=== PATIENT | female | born 1975 | race Caucasian/White ===

== ENCOUNTER 2016-07-24 15:46 | Emergency (ER) | payer SELFPAY ==
[~2016-07-24 15:46] MED LIST: ALPR1TAB2 PO; ASPI1TAB PO; DEXT30CA6 PO; ESTR0.62 PO; HYDR-2666 PO; VENL75CA PO; ZOLP10TA PO
[2016-07-24 18:26] LABS: BASO # 0.1 x10^3/uL (0.0-0.2); BASO % 1 % (0-3); EOS % 1 % (0-3); HEMATOCRIT 43.4 % (36.0-47.0); HEMOGLOBIN 14.7 g/dL (12.0-15.5); LYMPH # 3.6 x10^3/uL (1.0-4.8); LYMPH % 27 % (24-48); MEAN CORPUSCULAR HEMOGLOBIN 31 pg (25-35); MEAN CORPUSCULAR HGB CONC 34 g/dL (31-37); MEAN CORPUSCULAR VOLUME 92 fL (79-100); MONO % 5 % (0-9); NEUT % 66 % (31-73); PLATELET COUNT 251 x10^3/uL (140-400); RED BLOOD COUNT 4.72 x10^6/uL (3.50-5.40); RED CELL DISTRIBUTION WIDTH 13.9 % (11.5-14.5); WHITE BLOOD COUNT 13.4 x10^3/uL (4.0-11.0)
[2016-07-24] MEDS ORDERED: ONDANSETRON PF 4 MG/2 ML VIAL. IV ONE (18:30)
[2016-07-24] MEDS ORDERED: KETOROLAC 15 MG/ML VIAL. IV ONE (18:30)
[2016-07-24] MEDS ORDERED: IV NORMAL SALINE 1000ML BAG 1,000 ML IV SCH (18:30)
[2016-07-24 18:33] LABS: BILIRUBIN,URINE NEGATIVE (NEG); GLUCOSE,URINE NEGATIVE (NEG); NITRITE,URINE NEGATIVE (NEG); PROTEIN,URINE NEGATIVE (NEG-TRACE); UROBILINOGEN,URINE 0.2 mg/dL (0.2 mg/dL)
[2016-07-24 18:39] LABS: BACTERIA,URINE 0 /HPF (0-FEW); RBC,URINE 0 /HPF (0-2); SQUAMOUS EPITHELIAL CELL,UR OCC /LPF; WBC,URINE OCC /HPF (0-4)
[2016-07-24 18:44] LABS: CALCIUM 9.2 mg/dL (8.5-10.1); CREATININE 0.6 mg/dL (0.6-1.0); GFR 110.2; POTASSIUM 3.5 mmol/L (3.5-5.1)
[2016-07-24] MEDS: fentaNYL PF VIAL 100 MCG/2 ML VIAL IV PRN ×2 (18:48→19:38)
[2016-07-24 18:50] LABS: ALBUMIN 3.9 g/dL (3.4-5.0); TOTAL BILIRUBIN 0.5 mg/dL (0.2-1.0); TOTAL PROTEIN 7.8 g/dL (6.4-8.2)
--- NOTE | 2016-07-24 20:50 | RAD ---
PROCEDURE CT abdomen pelvis without contrast. HISTORY Bilateral flank pain for 1 week, history of kidney stones of frequent urinary tract infections TECHNIQUE Noncontrast CT imaging was performed of the abdomen and pelvis, multiplanar reconstruction images submitted. Exposure: One or more of the following individualized dose reduction techniques were utilized for this exam: 1. Automated exposure control. 2. Adjustment of the mA and/or kV according to patient size. 3. Use of iterative reconstruction technique. COMPARISON January 03, 2016 FINDINGS There is no significant abnormality of the limited visualized lung bases. Accurate evaluation of the abdominal visceral organs is limited without intravenous contrast. There is no obvious focal abnormality of the liver, spleen, pancreas. Gallbladder is present without obvious intraluminal abnormality by CT. There is no adrenal nodularity. No convincing ureteral calculus is identified, phleboliths in the pelvis bilaterally. There is no hydronephrosis of either kidney. There are several, at least 14 scattered right renal calculi, largest 2 to 3 millimeters. There is no left renal calculus. Accurate evaluation of bowel is limited without oral contrast. There is no significant bowel dilatation, free air, free fluid. There is some gas in the vaginal vault. Normal appendix is visualized. There is some retained stool in segments of the colon. Small bowel is not significantly dilated. There is moderate to severe degenerative disc disease L5-S1. There is disc osteophyte complex eccentric into the inferior right L5-S1 neural foramen with mild narrowing. IMPRESSION 1. There are multiple right renal calculi, no hydronephrosis. No convincing ureteral calculus is identified. 2. There is retained stool in segments of the colon. 3. There is degenerative disc disease L5-S1. Electronically signed by: Boris Eagle MD (July 24, 2016 20:48:24)
[2016-07-24 21:32] VITALS: BP 134/89
[2016-07-24] MEDS ORDERED: NAPR250T2 PO (21:41)
[2016-07-24] MEDS ORDERED: CYCL10TA2 PO (21:41)
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
== END 2016-07-24 21:55 | disposition home or self-care (01) ==
LOC: ER 15:46
DX: R10.9 Unspecified abdominal pain (principal); R11.0 Nausea; F90.9 Attention-deficit hyperactivity disorder, unspecified type; F17.200 Nicotine dependence, unspecified, uncomplicated; M51.37 Other intervertebral disc degeneration, lumbosacral region; Z87.442 Personal history of urinary calculi; Z87.440 Personal history of urinary (tract) infections; Z90.710 Acquired absence of both cervix and uterus
CPT/HCPCS: 36415; 74176; 80053; 81001; 83690; 85027; 96361; 96374; 96375; 96376; 99285; J1885; J2405; J3010; J7030

== ENCOUNTER 2016-08-29 12:23 | Emergency (ER) | payer OTHER ==
[~2016-08-29] VITALS: Ht 170.2 cm; Wt 77.1 kg
[~2016-08-29 12:23] MED LIST changes: +CYCL10TA2 PO; -HYDR-2666 PO; +HYDR-2758 PO; +NAPR250T2 PO
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
[2016-08-29] MEDS ORDERED: LORazepam 1 MG TABLET PO ONE (13:15)
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
[2016-08-29] MEDS ORDERED: LIDO:MAALOX:DONNATAL 1:1:1 15 ML SINGLE DOSE SWSW ONE (14:30)
[2016-08-29] MEDS ORDERED: CYCL10TA2 PO (14:46)
[2016-08-29 15:00] VITALS: BP 133/89
== END 2016-08-29 15:05 | disposition home or self-care (01) ==
LOC: ER 12:23
DX: S16.1XXA Strain of muscle, fascia and tendon at neck level, initial encounter (principal); M54.6 Pain in thoracic spine; F90.9 Attention-deficit hyperactivity disorder, unspecified type; Z90.710 Acquired absence of both cervix and uterus; V46.4XXA Person boarding or alighting a car injured in collision with other nonmotor vehicle, initial encounter; Y93.89 Activity, other specified; Y92.488 Other paved roadways as the place of occurrence of the external cause; Y99.8 Other external cause status
CPT/HCPCS: 70450; 72072; 72100; 72125; 99284-25

== ENCOUNTER 2017-11-06 21:33 | Inpatient (IN) | payer OTHER ==
[~2017-11-06] VITALS: Ht 170.2 cm; Wt 78.7 kg
[~2017-11-06 21:33] MED LIST changes: -NAPR250T2 PO; +NAPR250T6 PO
[2017-11-06] MEDS ORDERED: ONDANSETRON PF 4 MG/2 ML VIAL. IV PRN (22:30)
[2017-11-06] MEDS: IV NORMAL SALINE 1000ML BAG 1,000 ML IV SCH (22:30)
[2017-11-06] MEDS ORDERED: DIPHTH,PERTUSS(ACELL),TET TOX 0.5 ML DISP.SYRIN. VAX IM ONE (22:30)
--- NOTE | 2017-11-06 22:42 | PHYS DOC ---
Past Medical History Past Medical History: Anxiety, Depression, Endometriosis Additional Past Medical Histor: ADHD, CHRONIC NECK PAIN Past Surgical History: Hysterectomy Additional Past Surgical Histo: Pt. has had blood transfusion 2008 Alcohol Use: Occasionally Drug Use: Benzodiazepine Adult General Chief Complaint Chief Complaint: SUICDAL IDEATION HPI HPI Patient is a 42 year old female who presents after taking an overdose of Xanax. Patient has a known history of depression and anxiety. She does take antidepressant medications daily. She also takes 1 mg of Xanax 3 times daily. She has been on this medication for several years. This evening, the patient is having increased stress. She is upset because she is tired of feeling depressed despite taking medications. She also relates that she recently suffered the loss of her father. This evening, the patient took 90 Xanax. These were 1 mg tablets. She took the medicine at 8:45 PM. She also used a serrated edged knife to inflict superficial lacerations over the volar surfaces of her distal forearm. She denies previous history of suicide attempts. And route to the hospital, the patient was given activated charcoal her EMS. Review of Systems Review of Systems Constitutional: Denies fever Eyes: Denies change in visual acuity HENT: Denies nasal congestion Respiratory: Denies cough Cardiovascular: No additional GI: Denies abdominal pain, nausea : Denies dysuria Musculoskeletal: Denies back pain Integument: Denies rash Neurologic: Denies headache Endocrine: Denies polyuria All other systems were reviewed and found to be within normal limits, except as documented in this note. Current Medications Current Medications Current Medications Medications (Trade) Dose Ordered Sig/Robi Start Time Stop Time Status Last Admin Dose Admin Diphtheria/ Tetanus/Acell Pertussis (Boostrix) 0.5 ml ONCE ONCE 11/06/17 22:30 11/06/17 22:31 DC Ondansetron HCl (Zofran) 4 mg PRN Q8HRS PRN 11/06/17 22:30 11/07/17 22:29 Sodium Chloride 1,000 ml @ 1,000 mls/hr 1X ONCE 11/06/17 22:45 11/06/17 23:44 Allergies Allergies Allergies Coded Allergies Type Severity Reaction Last Updated Verified No Known Drug Allergies 08/16/15 No Physical Exam Physical Exam Constitutional: Well developed, well nourished, no acute distress, non-toxic appearance HENT: Normocephalic, atraumatic, bilateral external ears normal, oropharynx moist Eyes: PERRLA, EOMI, conjunctiva normal, no discharge Neck: Normal range of motion Cardiovascular:Heart rate regular rhythm Lungs & Thorax: Bilateral breath sounds clear Abdomen: Bowel sounds normal, soft, no tenderness Skin: Warm, dry, no erythema Extremities: No tenderness, no edema. superficial lacerations over wrists. Do not need sutures. Neurologic: Alert and oriented X 3 Psychologic: Affect normal Current Patient Data Vital Signs Vital Signs Date Time Temp Pulse Resp B/P (MAP) Pulse Ox O2 Delivery O2 Flow Rate FiO2 11/06/17 21:33 98.2 82 14 114/63 (80) 97 Room Air 98.2 Lab Values Laboratory Tests Test 11/06/17 22:35 White Blood Count 9.9 x10^3/uL (4.0-11.0) Red Blood Count 4.71 x10^6/uL (3.50-5.40) Hemoglobin 14.8 g/dL (12.0-15.5) Hematocrit 42.7 % (36.0-47.0) Mean Corpuscular Volume 91 fL (79-100) Mean Corpuscular Hemoglobin 32 pg (25-35) Mean Corpuscular Hemoglobin Concent 35 g/dL (31-37) Red Cell Distribution Width 13.4 % (11.5-14.5) Platelet Count 251 x10^3/uL (140-400) Neutrophils (%) (Auto) 52 % (31-73) Lymphocytes (%) (Auto) 36 % (24-48) Monocytes (%) (Auto) 8 % (0-9) Eosinophils (%) (Auto) 4 % (0-3) H Basophils (%) (Auto) 1 % (0-3) Neutrophils # (Auto) 5.2 x10^3uL (1.8-7.7) Lymphocytes # (Auto) 3.6 x10^3/uL (1.0-4.8) Monocytes # (Auto) 0.7 x10^3/uL (0.0-1.1) Eosinophils # (Auto) 0.4 x10^3/uL (0.0-0.7) Basophils # (Auto) 0.1 x10^3/uL (0.0-0.2) Sodium Level 137 mmol/L (136-145) Potassium Level 3.4 mmol/L (3.5-5.1) L Chloride Level 102 mmol/L (98-107) Carbon Dioxide Level 28 mmol/L (21-32) Anion Gap 7 (6-14) Blood Urea Nitrogen 13 mg/dL (7-20) Creatinine 0.8 mg/dL (0.6-1.0) Estimated GFR (Cockcroft-Gault) 78.7 Glucose Level 122 mg/dL (70-99) H Calcium Level 9.0 mg/dL (8.5-10.1) Total Bilirubin 0.2 mg/dL (0.2-1.0) Direct Bilirubin < 0.1 mg/dL (0.0-0.2) Aspartate Amino Transferase (AST) 10 U/L (15-37) L Alanine Aminotransferase (ALT) 18 U/L (14-59) Alkaline Phosphatase 70 U/L (46-116) Total Protein 7.0 g/dL (6.4-8.2) Albumin 3.5 g/dL (3.4-5.0) Thyroid Stimulating Hormone (TSH) 1.236 uIU/mL (0.358-3.74) Salicylates Level 3.7 mg/dL (2.8-20.0) Salicylate Last Dose Date Unknown Salicylate Last Dose Time Unknown Acetaminophen Level < 2.0 mcg/ml (10-30) L Acetaminophen Last Dose Date Unknown Acetaminophen Last Dose Time Unknown Laboratory Tests 11/06/17 22:35 Laboratory Tests 11/06/17 22:35 EKG EKG No STEMI Interpretation Time: 22:35 Radiology/Procedures Radiology/Procedures [] Course & Med Decision Making Course & Med Decision Making Pertinent Labs and Imaging studies reviewed. (See chart for details) Patient is evaluated immediately on arrival to the emergency room. She has no acute complaints. She is only a couple hours from the time of her ingestion. According to the patient, she took 90 mg of Xanax. I reviewed her KTRACs to verify prescription history. She did pickle maker 90 1 mg xanax on November 01. We do not have the bottle available this evening to confirm. Plan will be to admit the patient to the ICU for close monitoring. Flumazenil could be used to reverse an acute ingestion but is not recommended for a patient who chronically takes the medication. We will observe her carefully for respiratory depression or hypotension in the ER over the next several hours. Basic labs are ordered. 23:25: Patient is sleepy but remains easy to arouse. Her vital signs have been stable although she had some systolic blood pressure below 90s. She was given 1 L of normal saline in the ER. She has had no signs of respiratory depression. I spoke with Dr. Jack regarding admission of this patient. The patient will be admitted to the intensive care unit. She is placed on suicide precautions and one-on-one. Psychiatric assessment team consult is requested to be completed tomorrow morning. The patient is cooperative and agreeable to the plan of care. Dragon Disclaimer Dragon Disclaimer This electronic medical record was generated, in whole or in part, using a voice recognition dictation system. Departure Departure Referrals: WILMER JENKINS MD (PCP) ELE ZULETA DO Nov 06, 2017 22:41
[2017-11-06] MEDS ORDERED: IV NORMAL SALINE 1000ML BAG 1,000 ML IV ONE (22:45)
[2017-11-06 22:47] LABS: BASO # 0.1 x10^3/uL (0.0-0.2); BASO % 1 % (0-3); EOS # 0.4 x10^3/uL (0.0-0.7); EOS % 4 % (0-3); HEMATOCRIT 42.7 % (36.0-47.0); HEMOGLOBIN 14.8 g/dL (12.0-15.5); LYMPH # 3.6 x10^3/uL (1.0-4.8); LYMPH % 36 % (24-48); MEAN CORPUSCULAR HEMOGLOBIN 32 pg (25-35); MEAN CORPUSCULAR HGB CONC 35 g/dL (31-37); MEAN CORPUSCULAR VOLUME 91 fL (79-100); MONO # 0.7 x10^3/uL (0.0-1.1); MONO % 8 % (0-9); NEUT # 5.2 x10^3uL (1.8-7.7); NEUT % 52 % (31-73); PLATELET COUNT 251 x10^3/uL (140-400); RED BLOOD COUNT 4.71 x10^6/uL (3.50-5.40); RED CELL DISTRIBUTION WIDTH 13.4 % (11.5-14.5); WHITE BLOOD COUNT 9.9 x10^3/uL (4.0-11.0)
--- NOTE | 2017-11-06 22:51 | EKG ---
[facility] [address] [place] [address] Test Date: 2017-11-06 Test Time: 22:33:26 Pat Name: BILLY GAMBOA Department: Room: Gender: F Manager Game: : 1975 Requested By: ELE ZULETA Order Number: [id number] Reading MD: Nick Calzada MD Measurements Intervals [place] Rate: 81 P: 45 VA: 142 QRS: 19 QRSD: 94 T: 26 QT: 388 QTc: 456 Interpretive Statements SINUS RHYTHM Electronically Signed On 11-08-2017 15:21:26 CDT by Nick Calzada MD
[2017-11-06 23:00] LABS: ANION GAP 7 (6-14); BLOOD UREA NITROGEN 13 mg/dL (7-20); CARBON DIOXIDE 28 mmol/L (21-32); CHLORIDE 102 mmol/L (98-107); CREATININE 0.8 mg/dL (0.6-1.0); GFR 78.7; GLUCOSE 122 mg/dL (70-99); POTASSIUM 3.4 mmol/L (3.5-5.1); SODIUM 137 mmol/L (136-145)
[2017-11-06 23:04] LABS: SALIC 3.7 mg/dL (2.8-20.0)
[2017-11-06 23:05] LABS: ACETAMIN < 2.0 mcg/ml (10-30)
[2017-11-06 23:06] LABS: ALBUMIN 3.5 g/dL (3.4-5.0); ALK PHOS 70 U/L (46-116); ALT (SGPT) 18 U/L (14-59); AST (SGOT) 10 U/L (15-37); DIRECT BILIRUBIN < 0.1 mg/dL (0.0-0.2); TOTAL BILIRUBIN 0.2 mg/dL (0.2-1.0)
[2017-11-06 23:28] LABS: BILIRUBIN,URINE NEGATIVE (NEG); CLARITY,URINE CLEAR; COLOR,URINE YELLOW; NITRITE,URINE NEGATIVE (NEG); PH,URINE 6.5; PROTEIN,URINE NEGATIVE (NEG-TRACE); UROBILINOGEN,URINE 0.2 mg/dL (0.2 mg/dL)
[2017-11-06 23:32] LABS: BACTERIA,URINE 0 /HPF (0-FEW); RBC,URINE 0 /HPF (0-2); SQUAMOUS EPITHELIAL CELL,UR FEW /LPF; WBC,URINE 0 /HPF (0-4)
[2017-11-06 23:35] LABS: AMPHETAMINE/METHAMPHETAMINE NEG (NEG); BARBITURATES NEG (NEG); BENZODIAZEPINES POS (NEG); CANNABINOIDS NEG (NEG); COCAINE NEG (NEG); METHADONE NEG (NEG); OPIATES NEG (NEG); PHENCYCLIDINE NEG (NEG)
[2017-11-06] MEDS ORDERED: KETOROLAC 30 MG/ML VIAL. IV ONE (23:55)
[2017-11-07] VITALS (20 sets, daily range): BP systolic 86–116; BP diastolic 32–73
[2017-11-07] MEDS ORDERED: ESCITALOPRAM OX20 MG PO (01:46)
[2017-11-07 06:52] LABS: ALBUMIN 3.1 g/dL (3.4-5.0); CALCIUM 8.4 mg/dL (8.5-10.1); CREATININE 0.6 mg/dL (0.6-1.0); GFR 109.6; POTASSIUM 3.9 mmol/L (3.5-5.1); TOTAL BILIRUBIN 0.2 mg/dL (0.2-1.0); TOTAL PROTEIN 6.3 g/dL (6.4-8.2)
[2017-11-07] MEDS: IV NORMAL SALINE 1000ML BAG 1,000 ML IV SCH ×2 (08:30→19:47)
[2017-11-07 13:38] LABS: HEMATOCRIT 39.9 % (36.0-47.0); HEMOGLOBIN 13.7 g/dL (12.0-15.5); RED BLOOD COUNT 4.38 x10^6/uL (3.50-5.40); RED CELL DISTRIBUTION WIDTH 13.6 % (11.5-14.5); WHITE BLOOD COUNT 8.2 x10^3/uL (4.0-11.0)
[2017-11-07 13:53] LABS: CALCIUM 8.1 mg/dL (8.5-10.1); CREATININE 0.7 mg/dL (0.6-1.0); GFR 91.8; MAGNESIUM 1.7 mg/dL (1.8-2.4); POTASSIUM 4.1 mmol/L (3.5-5.1)
--- NOTE | 2017-11-07 15:21 | PDOC ---
PROGRESS NOTES Chief Complaint Chief Complaint Xanax overdose Anxiety, Depression, Endometriosis ADHD, CHRONIC NECK PAIN Hysterectomy History of Present Illness History of Present Illness Pt seen and examined in ICU She was eating a meal and is tolerating food well. She was very drowsy and slow in thought and communication Pts father recently causing emotional distress PAT consult suggested [facility] and patient agreed to undergo treatment there DW RN Vitals Vitals Vital Signs Date Time Temp Pulse Resp B/P (MAP) Pulse Ox O2 Delivery O2 Flow Rate FiO2 11/07/17 14:00 79 15 96/66 (76) 94 Room Air 11/07/17 09:00 98.2 98.2 11/07/17 06:00 2.0 Physical Exam General: Oriented X3, Cooperative Heart: Regular rate, Normal S1 Lungs: Clear Abdomen: Normal bowel sounds, Soft Extremities: No clubbing, No cyanosis Skin: No rashes, No breakdown Labs LABS Laboratory Tests Test 11/06/17 22:35 11/06/17 23:01 11/07/17 05:45 11/07/17 13:30 White Blood Count 9.9 x10^3/uL (4.0-11.0) 8.2 x10^3/uL (4.0-11.0) Red Blood Count 4.71 x10^6/uL (3.50-5.40) 4.38 x10^6/uL (3.50-5.40) Hemoglobin 14.8 g/dL (12.0-15.5) 13.7 g/dL (12.0-15.5) Hematocrit 42.7 % (36.0-47.0) 39.9 % (36.0-47.0) Mean Corpuscular Volume 91 fL (79-100) 91 fL (79-100) Mean Corpuscular Hemoglobin 32 pg (25-35) 31 pg (25-35) Mean Corpuscular Hemoglobin Concent 35 g/dL (31-37) 34 g/dL (31-37) Red Cell Distribution Width 13.4 % (11.5-14.5) 13.6 % (11.5-14.5) Platelet Count 251 x10^3/uL (140-400) 225 x10^3/uL (140-400) Neutrophils (%) (Auto) 52 % (31-73) Lymphocytes (%) (Auto) 36 % (24-48) Monocytes (%) (Auto) 8 % (0-9) Eosinophils (%) (Auto) 4 % (0-3) Basophils (%) (Auto) 1 % (0-3) Neutrophils # (Auto) 5.2 x10^3uL (1.8-7.7) Lymphocytes # (Auto) 3.6 x10^3/uL (1.0-4.8) Monocytes # (Auto) 0.7 x10^3/uL (0.0-1.1) Eosinophils # (Auto) 0.4 x10^3/uL (0.0-0.7) Basophils # (Auto) 0.1 x10^3/uL (0.0-0.2) Sodium Level 137 mmol/L (136-145) 141 mmol/L (136-145) 141 mmol/L (136-145) Potassium Level 3.4 mmol/L (3.5-5.1) 3.9 mmol/L (3.5-5.1) 4.1 mmol/L (3.5-5.1) Chloride Level 102 mmol/L (98-107) 106 mmol/L (98-107) 107 mmol/L (98-107) Carbon Dioxide Level 28 mmol/L (21-32) 28 mmol/L (21-32) 29 mmol/L (21-32) Anion Gap 7 (6-14) 7 (6-14) 5 (6-14) Blood Urea Nitrogen 13 mg/dL (7-20) 10 mg/dL (7-20) 10 mg/dL (7-20) Creatinine 0.8 mg/dL (0.6-1.0) 0.6 mg/dL (0.6-1.0) 0.7 mg/dL (0.6-1.0) Estimated GFR (Cockcroft-Gault) 78.7 109.6 91.8 Glucose Level 122 mg/dL (70-99) 99 mg/dL (70-99) 89 mg/dL (70-99) Calcium Level 9.0 mg/dL (8.5-10.1) 8.4 mg/dL (8.5-10.1) 8.1 mg/dL (8.5-10.1) Total Bilirubin 0.2 mg/dL (0.2-1.0) 0.2 mg/dL (0.2-1.0) Direct Bilirubin < 0.1 mg/dL (0.0-0.2) Aspartate Amino Transf (AST/SGOT) 10 U/L (15-37) 11 U/L (15-37) Alanine Aminotransferase (ALT/SGPT) 18 U/L (14-59) 19 U/L (14-59) Alkaline Phosphatase 70 U/L (46-116) 57 U/L (46-116) Total Protein 7.0 g/dL (6.4-8.2) 6.3 g/dL (6.4-8.2) Albumin 3.5 g/dL (3.4-5.0) 3.1 g/dL (3.4-5.0) Thyroid Stimulating Hormone (TSH) 1.236 uIU/mL (0.358-3.74) Salicylates Level 3.7 mg/dL (2.8-20.0) Salicylate Last Dose Date Unknown Salicylate Last Dose Time Unknown Acetaminophen Level < 2.0 mcg/ml (10-30) Acetaminophen Last Dose Date Unknown Acetaminophen Last Dose Time Unknown Urine Collection Type Unknown Urine Color Yellow Urine Clarity Clear Urine pH 6.5 Urine Specific [place] 1.010 Urine Protein Negative mg/dL (NEG-TRACE) Urine Glucose (UA) Negative mg/dL (NEG) Urine Ketones (Stick) Negative mg/dL (NEG) Urine Blood Negative (NEG) Urine Nitrite Negative (NEG) Urine Bilirubin Negative (NEG) Urine Urobilinogen Dipstick 0.2 mg/dL (0.2 mg/dL) Urine Leukocyte Esterase Negative (NEG) Urine RBC 0 /HPF (0-2) Urine WBC 0 /HPF (0-4) Urine Squamous Epithelial Cells Few /LPF Urine Bacteria 0 /HPF (0-FEW) Urine Opiates Screen Neg (NEG) Urine Methadone Screen Neg (NEG) Urine Barbiturates Neg (NEG) Urine Phencyclidine Screen Neg (NEG) Urine Amphetamine/Methamphetamine Neg (NEG) Urine Benzodiazepines Screen Pos (NEG) Urine Cocaine Screen Neg (NEG) Urine Cannabinoids Screen Neg (NEG) Urine Ethyl Alcohol Neg (NEG) BUN/Creatinine Ratio 17 (6-20) Albumin/Globulin Ratio 1.0 (1.0-1.7) Magnesium Level 1.7 mg/dL (1.8-2.4) Review of Systems Review of Systems Denies N/V/D Denies GUNTER Assessment and Plan Assessmemt and Plan Xanax overdose Anxiety, Depression, Endometriosis ADHD, CHRONIC NECK PAIN Hysterectomy Plan: IVF home meds cardiac monitoring PT/OT Probable DC to [facility] in AM Comment Review of Relevant I have reviewed the following items melisa (where applicable) has been applied. Labs Laboratory Tests Test 11/06/17 22:35 11/06/17 23:01 11/07/17 05:45 11/07/17 13:30 White Blood Count 9.9 x10^3/uL (4.0-11.0) 8.2 x10^3/uL (4.0-11.0) Red Blood Count 4.71 x10^6/uL (3.50-5.40) 4.38 x10^6/uL (3.50-5.40) Hemoglobin 14.8 g/dL (12.0-15.5) 13.7 g/dL (12.0-15.5) Hematocrit 42.7 % (36.0-47.0) 39.9 % (36.0-47.0) Mean Corpuscular Volume 91 fL (79-100) 91 fL (79-100) Mean Corpuscular Hemoglobin 32 pg (25-35) 31 pg (25-35) Mean Corpuscular Hemoglobin Concent 35 g/dL (31-37) 34 g/dL (31-37) Red Cell Distribution Width 13.4 % (11.5-14.5) 13.6 % (11.5-14.5) Platelet Count 251 x10^3/uL (140-400) 225 x10^3/uL (140-400) Neutrophils (%) (Auto) 52 % (31-73) Lymphocytes (%) (Auto) 36 % (24-48) Monocytes (%) (Auto) 8 % (0-9) Eosinophils (%) (Auto) 4 % (0-3) Basophils (%) (Auto) 1 % (0-3) Neutrophils # (Auto) 5.2 x10^3uL (1.8-7.7) Lymphocytes # (Auto) 3.6 x10^3/uL (1.0-4.8) Monocytes # (Auto) 0.7 x10^3/uL (0.0-1.1) Eosinophils # (Auto) 0.4 x10^3/uL (0.0-0.7) Basophils # (Auto) 0.1 x10^3/uL (0.0-0.2) Sodium Level 137 mmol/L (136-145) 141 mmol/L (136-145) 141 mmol/L (136-145) Potassium Level 3.4 mmol/L (3.5-5.1) 3.9 mmol/L (3.5-5.1) 4.1 mmol/L (3.5-5.1) Chloride Level 102 mmol/L (98-107) 106 mmol/L (98-107) 107 mmol/L (98-107) Carbon Dioxide Level 28 mmol/L (21-32) 28 mmol/L (21-32) 29 mmol/L (21-32) Anion Gap 7 (6-14) 7 (6-14) 5 (6-14) Blood Urea Nitrogen 13 mg/dL (7-20) 10 mg/dL (7-20) 10 mg/dL (7-20) Creatinine 0.8 mg/dL (0.6-1.0) 0.6 mg/dL (0.6-1.0) 0.7 mg/dL (0.6-1.0) Estimated GFR (Cockcroft-Gault) 78.7 109.6 91.8 Glucose Level 122 mg/dL (70-99) 99 mg/dL (70-99) 89 mg/dL (70-99) Calcium Level 9.0 mg/dL (8.5-10.1) 8.4 mg/dL (8.5-10.1) 8.1 mg/dL (8.5-10.1) Total Bilirubin 0.2 mg/dL (0.2-1.0) 0.2 mg/dL (0.2-1.0) Direct Bilirubin < 0.1 mg/dL (0.0-0.2) Aspartate Amino Transf (AST/SGOT) 10 U/L (15-37) 11 U/L (15-37) Alanine Aminotransferase (ALT/SGPT) 18 U/L (14-59) 19 U/L (14-59) Alkaline Phosphatase 70 U/L (46-116) 57 U/L (46-116) Total Protein 7.0 g/dL (6.4-8.2) 6.3 g/dL (6.4-8.2) Albumin 3.5 g/dL (3.4-5.0) 3.1 g/dL (3.4-5.0) Thyroid Stimulating Hormone (TSH) 1.236 uIU/mL (0.358-3.74) Salicylates Level 3.7 mg/dL (2.8-20.0) Salicylate Last Dose Date Unknown Salicylate Last Dose Time Unknown Acetaminophen Level < 2.0 mcg/ml (10-30) Acetaminophen Last Dose Date Unknown Acetaminophen Last Dose Time Unknown Urine Collection Type Unknown Urine Color Yellow Urine Clarity Clear Urine pH 6.5 Urine Specific [place] 1.010 Urine Protein Negative mg/dL (NEG-TRACE) Urine Glucose (UA) Negative mg/dL (NEG) Urine Ketones (Stick) Negative mg/dL (NEG) Urine Blood Negative (NEG) Urine Nitrite Negative (NEG) Urine Bilirubin Negative (NEG) Urine Urobilinogen Dipstick 0.2 mg/dL (0.2 mg/dL) Urine Leukocyte Esterase Negative (NEG) Urine RBC 0 /HPF (0-2) Urine WBC 0 /HPF (0-4) Urine Squamous Epithelial Cells Few /LPF Urine Bacteria 0 /HPF (0-FEW) Urine Opiates Screen Neg (NEG) Urine Methadone Screen Neg (NEG) Urine Barbiturates Neg (NEG) Urine Phencyclidine Screen Neg (NEG) Urine Amphetamine/Methamphetamine Neg (NEG) Urine Benzodiazepines Screen Pos (NEG) Urine Cocaine Screen Neg (NEG) Urine Cannabinoids Screen Neg (NEG) Urine Ethyl Alcohol Neg (NEG) BUN/Creatinine Ratio 17 (6-20) Albumin/Globulin Ratio 1.0 (1.0-1.7) Magnesium Level 1.7 mg/dL (1.8-2.4) Laboratory Tests Test 11/06/17 22:35 11/06/17 23:01 11/07/17 05:45 11/07/17 13:30 White Blood Count 9.9 x10^3/uL (4.0-11.0) 8.2 x10^3/uL (4.0-11.0) Red Blood Count 4.71 x10^6/uL (3.50-5.40) 4.38 x10^6/uL (3.50-5.40) Hemoglobin 14.8 g/dL (12.0-15.5) 13.7 g/dL (12.0-15.5) Hematocrit 42.7 % (36.0-47.0) 39.9 % (36.0-47.0) Mean Corpuscular Volume 91 fL (79-100) 91 fL (79-100) Mean Corpuscular Hemoglobin 32 pg (25-35) 31 pg (25-35) Mean Corpuscular Hemoglobin Concent 35 g/dL (31-37) 34 g/dL (31-37) Red Cell Distribution Width 13.4 % (11.5-14.5) 13.6 % (11.5-14.5) Platelet Count 251 x10^3/uL (140-400) 225 x10^3/uL (140-400) Neutrophils (%) (Auto) 52 % (31-73) Lymphocytes (%) (Auto) 36 % (24-48) Monocytes (%) (Auto) 8 % (0-9) Eosinophils (%) (Auto) 4 % (0-3) Basophils (%) (Auto) 1 % (0-3) Neutrophils # (Auto) 5.2 x10^3uL (1.8-7.7) Lymphocytes # (Auto) 3.6 x10^3/uL (1.0-4.8) Monocytes # (Auto) 0.7 x10^3/uL (0.0-1.1) Eosinophils # (Auto) 0.4 x10^3/uL (0.0-0.7) Basophils # (Auto) 0.1 x10^3/uL (0.0-0.2) Sodium Level 137 mmol/L (136-145) 141 mmol/L (136-145) 141 mmol/L (136-145) Potassium Level 3.4 mmol/L (3.5-5.1) 3.9 mmol/L (3.5-5.1) 4.1 mmol/L (3.5-5.1) Chloride Level 102 mmol/L (98-107) 106 mmol/L (98-107) 107 mmol/L (98-107) Carbon Dioxide Level 28 mmol/L (21-32) 28 mmol/L (21-32) 29 mmol/L (21-32) Anion Gap 7 (6-14) 7 (6-14) 5 (6-14) Blood Urea Nitrogen 13 mg/dL (7-20) 10 mg/dL (7-20) 10 mg/dL (7-20) Creatinine 0.8 mg/dL (0.6-1.0) 0.6 mg/dL (0.6-1.0) 0.7 mg/dL (0.6-1.0) Estimated GFR (Cockcroft-Gault) 78.7 109.6 91.8 Glucose Level 122 mg/dL (70-99) 99 mg/dL (70-99) 89 mg/dL (70-99) Calcium Level 9.0 mg/dL (8.5-10.1) 8.4 mg/dL (8.5-10.1) 8.1 mg/dL (8.5-10.1) Total Bilirubin 0.2 mg/dL (0.2-1.0) 0.2 mg/dL (0.2-1.0) Direct Bilirubin < 0.1 mg/dL (0.0-0.2) Aspartate Amino Transf (AST/SGOT) 10 U/L (15-37) 11 U/L (15-37) Alanine Aminotransferase (ALT/SGPT) 18 U/L (14-59) 19 U/L (14-59) Alkaline Phosphatase 70 U/L (46-116) 57 U/L (46-116) Total Protein 7.0 g/dL (6.4-8.2) 6.3 g/dL (6.4-8.2) Albumin 3.5 g/dL (3.4-5.0) 3.1 g/dL (3.4-5.0) Thyroid Stimulating Hormone (TSH) 1.236 uIU/mL (0.358-3.74) Salicylates Level 3.7 mg/dL (2.8-20.0) Salicylate Last Dose Date Unknown Salicylate Last Dose Time Unknown Acetaminophen Level < 2.0 mcg/ml (10-30) Acetaminophen Last Dose Date Unknown Acetaminophen Last Dose Time Unknown Urine Collection Type Unknown Urine Color Yellow Urine Clarity Clear Urine pH 6.5 Urine Specific [place] 1.010 Urine Protein Negative mg/dL (NEG-TRACE) Urine Glucose (UA) Negative mg/dL (NEG) Urine Ketones (Stick) Negative mg/dL (NEG) Urine Blood Negative (NEG) Urine Nitrite Negative (NEG) Urine Bilirubin Negative (NEG) Urine Urobilinogen Dipstick 0.2 mg/dL (0.2 mg/dL) Urine Leukocyte Esterase Negative (NEG) Urine RBC 0 /HPF (0-2) Urine WBC 0 /HPF (0-4) Urine Squamous Epithelial Cells Few /LPF Urine Bacteria 0 /HPF (0-FEW) Urine Opiates Screen Neg (NEG) Urine Methadone Screen Neg (NEG) Urine Barbiturates Neg (NEG) Urine Phencyclidine Screen Neg (NEG) Urine Amphetamine/Methamphetamine Neg (NEG) Urine Benzodiazepines Screen Pos (NEG) Urine Cocaine Screen Neg (NEG) Urine Cannabinoids Screen Neg (NEG) Urine Ethyl Alcohol Neg (NEG) BUN/Creatinine Ratio 17 (6-20) Albumin/Globulin Ratio 1.0 (1.0-1.7) Magnesium Level 1.7 mg/dL (1.8-2.4) Medications Current Medications Diphtheria/ Tetanus/Acell Pertussis (Boostrix) 0.5 ml ONCE ONCE VAX IM Last administered on 11/06/17at 22:59; Start 11/06/17 at 22:30; Stop 11/06/17 at 22:31 ; Status DC Ondansetron HCl (Zofran) 4 mg PRN Q8HRS PRN IV NAUSEA/VOMITING; Start 11/06/17 at 22:30; Stop 11/07/17 at 22:29 Sodium Chloride 1,000 ml @ 100 mls/hr Q10H IV Last administered on 11/07/17at 08:30; Start 11/06/17 at 22:30; Stop 11/07/17 at 22:29 Sodium Chloride 1,000 ml @ 1,000 mls/hr 1X ONCE IV Last administered on at 22:51; Start 11/06/17 at 22:45; Stop 11/06/17 at 23:44; Status DC Ketorolac Tromethamine (Toradol 30mg Vial) 30 mg 1X ONCE IV Last administered on 11/07/17at 00:23; Start 11/06/17 at 23:55; Stop 11/06/17 at 23:56; Status DC Active Scripts Active Cyclobenzaprine Hcl 10 Mg Tablet 1 Tab PO TID PRN Naproxen 250 Mg Tablet 250 Mg PO BID PRN Cyclobenzaprine Hcl 10 Mg Tablet 10 Mg PO TID PRN Sm Migraine Relief Caplet (Aspirin/Acetaminophen/Caffeine) 1 Each Tablet 1 Tab PO PRN Q6HRS PRN Hydrocodone-Apap 5-325 (Hydrocodone Bit/Acetaminophen) 1 Each Tablet 1 Tab PO PRN Q4HRS PRN Reported Escitalopram Oxalate 20 Mg Tablet 1 Tab PO DAILY Premarin (Estrogens, Conjugated) 0.625 Mg Tablet 1 Tab PO DAILY Ambien (Zolpidem Tartrate) 10 Mg Tablet 1 Tab PO QHS Adderall Xr 30 Mg Capsule (Dextroamphetamine/Amphetamine) 30 Mg Cap.er.24h 1 Cap PO PRN DAILY PRN Xanax (Alprazolam) 1 Mg Tablet 1 Tab PO PRN Q6-8HRS PRN Effexor Xr (Venlafaxine Hcl) 75 Mg Cap.er.24h 1 Cap PO DAILY Vitals/I & O Vital Sign - Last 24 Hours 11/06/17 11/06/17 11/06/17 11/07/17 21:33 23:38 23:47 00:07 Temp 98.2 98.2 Pulse 82 78 80 80 Resp 14 20 21 18 B/P (MAP) 114/63 (80) 107/77 (87) 97/67 (77) 93/62 (72) Pulse Ox 97 97 95 93 O2 Delivery Room Air 11/07/17 11/07/17 11/07/17 11/07/17 00:17 00:37 00:57 01:30 Temp 98.2 98.2 Pulse 82 72 74 71 Resp 24 22 23 18 B/P (MAP) 94/51 (65) 80/48 (59) 99/69 (79) 95/72 (80) Pulse Ox 93 92 97 100 O2 Delivery Room Air 11/07/17 11/07/17 11/07/17 11/07/17 01:45 01:45 02:00 02:15 Pulse 71 70 70 Resp 18 12 15 B/P (MAP) 89/68 (75) 110/71 (84) 105/66 (79) Pulse Ox 98 97 96 O2 Delivery Room Air Room Air Room Air Room Air 11/07/17 11/07/17 11/07/17 11/07/17 02:30 03:01 03:30 04:00 Pulse 72 81 83 Resp 16 17 19 B/P (MAP) 100/73 (82) 97/57 (70) 91/67 (75) Pulse Ox 98 96 92 O2 Delivery Room Air Nasal Cannula Nasal Cannula Room Air O2 Flow Rate 2.0 2.0 11/07/17 11/07/17 11/07/17 11/07/17 04:00 05:00 06:00 07:00 Temp 97.7 97.7 Pulse 72 77 72 71 Resp 18 18 19 19 B/P (MAP) 92/57 (69) 106/62 (77) 104/57 (73) 101/61 (74) Pulse Ox 96 94 95 94 O2 Delivery Nasal Cannula Nasal Cannula Nasal Cannula Room Air O2 Flow Rate 2.0 2.0 2.0 11/07/17 11/07/17 11/07/17 11/07/17 08:00 08:00 09:00 10:00 Temp 98.2 98.2 Pulse 70 75 76 Resp 18 20 20 B/P (MAP) 86/47 (60) 116/72 (87) 86/43 (57) Pulse Ox 92 96 96 O2 Delivery Room Air Room Air Room Air Room Air 11/07/17 11/07/17 11/07/17 11/07/17 11:00 12:00 12:00 13:00 Pulse 72 77 75 Resp 17 18 20 B/P (MAP) 90/32 (51) 98/47 (64) 103/67 (79) Pulse Ox 95 98 96 O2 Delivery Room Air Room Air Room Air Room Air 11/07/17 14:00 Pulse 79 Resp 15 B/P (MAP) 96/66 (76) Pulse Ox 94 O2 Delivery Room Air Intake and Output 11/06/17 11/06/17 11/07/17 15:00 23:00 07:00 Intake Total 240 ml Output Total 0 ml Balance 240 ml AMBER DE LA O III DO Nov 07, 2017 15:21
[2017-11-07] MEDS ORDERED: NICOTINE 14MG PATCH. TD PRN (15:45)
--- NOTE | 2017-11-07 19:52 | HP ---
ADMIT DATE: 11/07/2017 CHIEF COMPLAINT: Ingestion of Xanax and depression. 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 Basically, she got depressed. Her dad recently. Her mom is difficult to live with. She took 90 tablets of Xanax (1 mg tablets). Basically, the patient has been admitted overnight to the ICU because she was extremely sedated. This morning she is a little more awake. I checked the half-life on the Xanax, it is about 11.2 hours. I suspect this is going to take about 60 hours to get out of her blood stream. We have consulted the psychiatric assessment team. She is going to be going to [facility] after we get her stabilized. PAST MEDICAL HISTORY: Anxiety and depression. ALLERGIES: None. FAMILY HISTORY: Coronary artery disease. SOCIAL HISTORY: She does not drink, smoke or take drugs. She is a nurse. MEDICATIONS: Reviewed, please refer to the MRAD. REVIEW OF SYSTEMS: Unable to obtain, the patient is too sedated. PHYSICAL EXAMINATION: VITAL SIGNS: Temperature afebrile, pulse 90, respirations 18, blood pressure 130/60. GENERAL: She is sleeping. She awakens. She is pleasant, very groggy. HEART: Normal S1, S2. LUNGS: Clear. ABDOMEN: Soft. EXTREMITIES: No edema. SKIN: No rashes. ENDOCRINE: No thyromegaly. LYMPHATICS: No cervical nodes. HEMATOPOIETIC: No bruising. ASSESSMENT AND PLAN: Depression with ingestion of Xanax. The patient has been admitted to the ICU. We are observing her carefully. IV fluids, cardiac monitoring. It will take close to 60 hours to clear the drug out of her blood stream 98%. Once that happens, we are going to get her to the inpatient Psych Unit. AMBER DE LA O DO DR: PRESLEY/griselda JOB#: [id number] / [id number]
[2017-11-07 21:10] LABS: BARBITURATES NEG (NEG); BENZODIAZEPINES POS (NEG); CANNABINOIDS NEG (NEG); COCAINE NEG (NEG); METHADONE NEG (NEG); OPIATES NEG (NEG); PHENCYCLIDINE NEG (NEG)
[2017-11-07 21:12] LABS: AMPHETAMINE/METHAMPHETAMINE NEG (NEG)
[2017-11-08 03:01] VITALS: BP 114/59
[2017-11-08 07:07] VITALS: BP 159/96
[2017-11-08] MEDS ORDERED: ONDANSETRON ODT 4 MG TAB.RAPDIS. PO PRN (09:00)
[2017-11-08] MEDS ORDERED: IBUPROFEN 600 MG TABLET. PO PRN (09:00)
[2017-11-08] MEDS ORDERED: POLYETHYLENE GLYCOL 3350 17 GM PACKET. PO ONE (09:45)
[2017-11-08] MEDS ORDERED: MAGNESIUM HYDROXIDE 2,400 MG/30 ML ORAL.SUSP. PO PRN (09:45)
[2017-11-08] MEDS ORDERED: MAGNESIUM HYDROXIDE 2,400 MG/30 ML ORAL.SUSP. PO ONE (09:45)
[2017-11-08] MEDS: ACETAMINOPHEN 500 MG TABLET PO PRN (10:14)
[2017-11-08] MEDS: DOCUSATE SODIUM 100 MG CAPSULE. PO SCH (10:14)
[2017-11-08] MEDS: MAGNESIUM CHLORIDE ER 64 MG TABLET.ER PO SCH (10:59)
[2017-11-08] MEDS ORDERED: MAGNESIUM SULFATE 1GM 100 ML IV ONE (11:15)
--- NOTE | 2017-11-08 11:15 | PDOC3 ---
Discharge Summary Visit Information Date of Admission: Nov 06, 2017 Date of Discharge: Nov 08, 2017 Admitting Diagnosis Comment: xanax overdose Suicide ideations / gesture Final Diagnosis Problems Medical Problems: (1) Benzodiazepine overdose Status: Acute Brief Hospital Course Allergies Allergies Coded Allergies Type Severity Reaction Last Updated Verified metronidazole Allergy Intermediate Nausea 11/07/17 Yes I S O L A T I O N *CONTACT* Allergy Unknown 11/08/17 Yes Vital Signs Vital Signs Date Time Temp Pulse Resp B/P (MAP) Pulse Ox O2 Delivery O2 Flow Rate FiO2 11/08/17 07:07 96.6 66 18 159/96 (117) 98 Room Air 96.6 Lab Results Laboratory Tests Test 11/06/17 22:35 11/06/17 23:01 11/07/17 01:45 11/07/17 05:45 White Blood Count 9.9 x10^3/uL (4.0-11.0) Red Blood Count 4.71 x10^6/uL (3.50-5.40) Hemoglobin 14.8 g/dL (12.0-15.5) Hematocrit 42.7 % (36.0-47.0) Mean Corpuscular Volume 91 fL (79-100) Mean Corpuscular Hemoglobin 32 pg (25-35) Mean Corpuscular Hemoglobin Concent 35 g/dL (31-37) Red Cell Distribution Width 13.4 % (11.5-14.5) Platelet Count 251 x10^3/uL (140-400) Neutrophils (%) (Auto) 52 % (31-73) Lymphocytes (%) (Auto) 36 % (24-48) Monocytes (%) (Auto) 8 % (0-9) Eosinophils (%) (Auto) 4 % (0-3) Basophils (%) (Auto) 1 % (0-3) Neutrophils # (Auto) 5.2 x10^3uL (1.8-7.7) Lymphocytes # (Auto) 3.6 x10^3/uL (1.0-4.8) Monocytes # (Auto) 0.7 x10^3/uL (0.0-1.1) Eosinophils # (Auto) 0.4 x10^3/uL (0.0-0.7) Basophils # (Auto) 0.1 x10^3/uL (0.0-0.2) Sodium Level 137 mmol/L (136-145) 141 mmol/L (136-145) Potassium Level 3.4 mmol/L (3.5-5.1) 3.9 mmol/L (3.5-5.1) Chloride Level 102 mmol/L (98-107) 106 mmol/L (98-107) Carbon Dioxide Level 28 mmol/L (21-32) 28 mmol/L (21-32) Anion Gap 7 (6-14) 7 (6-14) Blood Urea Nitrogen 13 mg/dL (7-20) 10 mg/dL (7-20) Creatinine 0.8 mg/dL (0.6-1.0) 0.6 mg/dL (0.6-1.0) Estimated GFR (Cockcroft-Gault) 78.7 109.6 Glucose Level 122 mg/dL (70-99) 99 mg/dL (70-99) Calcium Level 9.0 mg/dL (8.5-10.1) 8.4 mg/dL (8.5-10.1) Total Bilirubin 0.2 mg/dL (0.2-1.0) 0.2 mg/dL (0.2-1.0) Direct Bilirubin < 0.1 mg/dL (0.0-0.2) Aspartate Amino Transf (AST/SGOT) 10 U/L (15-37) 11 U/L (15-37) Alanine Aminotransferase (ALT/SGPT) 18 U/L (14-59) 19 U/L (14-59) Alkaline Phosphatase 70 U/L (46-116) 57 U/L (46-116) Total Protein 7.0 g/dL (6.4-8.2) 6.3 g/dL (6.4-8.2) Albumin 3.5 g/dL (3.4-5.0) 3.1 g/dL (3.4-5.0) Thyroid Stimulating Hormone (TSH) 1.236 uIU/mL (0.358-3.74) Salicylates Level 3.7 mg/dL (2.8-20.0) Salicylate Last Dose Date Unknown Salicylate Last Dose Time Unknown Acetaminophen Level < 2.0 mcg/ml (10-30) Acetaminophen Last Dose Date Unknown Acetaminophen Last Dose Time Unknown Urine Collection Type Unknown Urine Color Yellow Urine Clarity Clear Urine pH 6.5 Urine Specific [place] 1.010 Urine Protein Negative mg/dL (NEG-TRACE) Urine Glucose (UA) Negative mg/dL (NEG) Urine Ketones (Stick) Negative mg/dL (NEG) Urine Blood Negative (NEG) Urine Nitrite Negative (NEG) Urine Bilirubin Negative (NEG) Urine Urobilinogen Dipstick 0.2 mg/dL (0.2 mg/dL) Urine Leukocyte Esterase Negative (NEG) Urine RBC 0 /HPF (0-2) Urine WBC 0 /HPF (0-4) Urine Squamous Epithelial Cells Few /LPF Urine Bacteria 0 /HPF (0-FEW) Urine Opiates Screen Neg (NEG) Urine Methadone Screen Neg (NEG) Urine Barbiturates Neg (NEG) Urine Phencyclidine Screen Neg (NEG) Urine Amphetamine/Methamphetamine Neg (NEG) Urine Benzodiazepines Screen Pos (NEG) Urine Cocaine Screen Neg (NEG) Urine Cannabinoids Screen Neg (NEG) Urine Ethyl Alcohol Neg (NEG) Nasal Screen MRSA (PCR) Positive (Negative) BUN/Creatinine Ratio 17 (6-20) Albumin/Globulin Ratio 1.0 (1.0-1.7) Test 11/07/17 13:30 11/07/17 20:15 White Blood Count 8.2 x10^3/uL (4.0-11.0) Red Blood Count 4.38 x10^6/uL (3.50-5.40) Hemoglobin 13.7 g/dL (12.0-15.5) Hematocrit 39.9 % (36.0-47.0) Mean Corpuscular Volume 91 fL (79-100) Mean Corpuscular Hemoglobin 31 pg (25-35) Mean Corpuscular Hemoglobin Concent 34 g/dL (31-37) Red Cell Distribution Width 13.6 % (11.5-14.5) Platelet Count 225 x10^3/uL (140-400) Sodium Level 141 mmol/L (136-145) Potassium Level 4.1 mmol/L (3.5-5.1) Chloride Level 107 mmol/L (98-107) Carbon Dioxide Level 29 mmol/L (21-32) Anion Gap 5 (6-14) Blood Urea Nitrogen 10 mg/dL (7-20) Creatinine 0.7 mg/dL (0.6-1.0) Estimated GFR (Cockcroft-Gault) 91.8 Glucose Level 89 mg/dL (70-99) Calcium Level 8.1 mg/dL (8.5-10.1) Magnesium Level 1.7 mg/dL (1.8-2.4) Urine Opiates Screen Neg (NEG) Urine Methadone Screen Neg (NEG) Urine Barbiturates Neg (NEG) Urine Phencyclidine Screen Neg (NEG) Urine Amphetamine/Methamphetamine Neg (NEG) Urine Benzodiazepines Screen Pos (NEG) Urine Cocaine Screen Neg (NEG) Urine Cannabinoids Screen Neg (NEG) Urine Ethyl Alcohol Neg (NEG) Laboratory Tests Test 11/07/17 13:30 11/07/17 20:15 White Blood Count 8.2 x10^3/uL (4.0-11.0) Red Blood Count 4.38 x10^6/uL (3.50-5.40) Hemoglobin 13.7 g/dL (12.0-15.5) Hematocrit 39.9 % (36.0-47.0) Mean Corpuscular Volume 91 fL (79-100) Mean Corpuscular Hemoglobin 31 pg (25-35) Mean Corpuscular Hemoglobin Concent 34 g/dL (31-37) Red Cell Distribution Width 13.6 % (11.5-14.5) Platelet Count 225 x10^3/uL (140-400) Sodium Level 141 mmol/L (136-145) Potassium Level 4.1 mmol/L (3.5-5.1) Chloride Level 107 mmol/L (98-107) Carbon Dioxide Level 29 mmol/L (21-32) Anion Gap 5 (6-14) Blood Urea Nitrogen 10 mg/dL (7-20) Creatinine 0.7 mg/dL (0.6-1.0) Estimated GFR (Cockcroft-Gault) 91.8 Glucose Level 89 mg/dL (70-99) Calcium Level 8.1 mg/dL (8.5-10.1) Magnesium Level 1.7 mg/dL (1.8-2.4) Urine Opiates Screen Neg (NEG) Urine Methadone Screen Neg (NEG) Urine Barbiturates Neg (NEG) Urine Phencyclidine Screen Neg (NEG) Urine Amphetamine/Methamphetamine Neg (NEG) Urine Benzodiazepines Screen Pos (NEG) Urine Cocaine Screen Neg (NEG) Urine Cannabinoids Screen Neg (NEG) Urine Ethyl Alcohol Neg (NEG) Brief Hospital Course Ms. Brenden is a 42 old white female who took 90 pills of 1 mg Xanax in an attempt of suicide. Was initially admitted to the ICU, protecting airway. About 24-48 hrs., she is awake, sitter at bedside, gait is better, and eating well. Needs inpatient psych, we're looking for a place. Med list on chart. No more Xanax or Lortabs or Ambien. She did initially ask for more benzos but of course I refused that. Patient seen and examined, discussed with patient, sitter, and social work Med list on chart Some low magnesium mild on discharge, 1.7 mag-I am giving mag sulfate 1 g IV 1 Discharge Information Condition at Discharge: Improved, Stable Disposition/Orders: D/C to Another Facility, Other Scheduled Escitalopram Oxalate (Escitalopram Oxalate) 20 Mg Tablet, 1 TAB PO DAILY, #30 Ref 5 (Reported) Entered as Reported by: YOANDY SWIFT on 11/07/17145 Last Taken: UNKNOWN on Unknown Date & Time Last Action: New Order on 11/07 by YOANDY SWIFT Estrogens, Conjugated (Premarin) 0.625 Mg Tablet, 1 TAB PO DAILY, #30 Ref 11 ( Reported) Entered as Reported by: TRI CARRION on 01/04/16312 Venlafaxine Hcl (Effexor Xr) 75 Mg Cap.er.24h, 1 CAP PO DAILY, #30 Ref 1 ( Reported) Entered as Reported by: TRI CARRION on 01/04/16312 Zolpidem Tartrate (Ambien) 10 Mg Tablet, 1 TAB PO QHS, #30 Ref 5 (Reported) Entered as Reported by: TRI CARRION on 01/04/16312 Last Action: Reviewed on 11/07/17145 by YOANDY SWIFT Scheduled PRN Alprazolam (Xanax) 1 Mg Tablet, 1 TAB PO PRN Q6-8HRS PRN for ANXIETY / AGITATION , #60 (Reported) Entered as Reported by: TRI CARRION on 01/04/16312 Last Action: Reviewed on 11/07/17145 by YOANDY SWIFT Aspirin/Acetaminophen/Caffeine (Sm Migraine Relief Caplet) 1 Each Tablet, 1 TAB PO PRN Q6HRS PRN for MIGRAINE HEADACHE, #10 Prescribed by: TANJA CHAVEZ MD on 01/06/16 1131 Cyclobenzaprine Hcl (Cyclobenzaprine Hcl) 10 Mg Tablet, 10 MG PO TID PRN for PAIN, #12 Prescribed by: LAUAR THACKER D.O. on 07/24/162140 Cyclobenzaprine Hcl (Cyclobenzaprine Hcl) 10 Mg Tablet, 1 TAB PO TID PRN for MUSCLE SPASMS, #30 Prescribed by: KOREY MAGALLON on 08/29/16 1446 Dextroamphetamine/Amphetamine (Adderall Xr 30 Mg Capsule) 30 Mg Cap.er.24h, 1 CAP PO PRN DAILY PRN for SEE COMMENTS, #30 (Reported) Entered as Reported by: TRI CARRION on 01/04/16 0313 Hydrocodone Bit/Acetaminophen (Hydrocodone-Apap 5-325 ) 1 Each Tablet, 1 TAB PO PRN Q4HRS PRN for PAIN, #20 Prescribed by: TANJA CHAVEZ MD on 01/06/16 1131 Naproxen (Naproxen) 250 Mg Tablet, 250 MG PO BID PRN for PAIN, #10 Prescribed by: LAURA THACKER D.O. on 07/24/161 MAZIN FRITZ MD Nov 08, 2017 11:15
[2017-11-08 15:00] VITALS: BP 113/67
[2017-11-08] MEDS: CITALOPRAM 20 MG TABLET. PO SCH (18:44)
[2017-11-08 19:00] VITALS: BP 121/78
[2017-11-08 23:00] VITALS: BP 111/70
[2017-11-09 03:00] VITALS: BP 105/65
[2017-11-09 06:53] VITALS: BP 105/67
[2017-11-09] MEDS ORDERED: POLYETHYLENE GLYCOL 3350 17 GM PACKET. PO SCH (09:00)
[2017-11-09] MEDS: CITALOPRAM 20 MG TABLET. PO SCH ×2 (09:00→13:14)
[2017-11-09] MEDS: DOCUSATE SODIUM 100 MG CAPSULE. PO SCH (09:00)
[2017-11-09] MEDS ORDERED: VENLAFAXINE XR 37.5 MG CAP.ER.24H. PO SCH (09:00)
[2017-11-09] MEDS: MAGNESIUM CHLORIDE ER 64 MG TABLET.ER PO SCH (09:03)
[2017-11-09] MEDS: ACETAMINOPHEN 500 MG TABLET PO PRN (10:49)
[2017-11-09 10:55] VITALS: BP 116/73
--- NOTE | 2017-11-09 11:56 | PDOC ---
PROGRESS NOTES Chief Complaint Chief Complaint Xanax overdose Anxiety, Depression, Endometriosis ADHD, CHRONIC NECK PAIN Hysterectomy History of Present Illness History of Present Illness Pt seen and examined states she is getting very anxious, possible side effect of withdrawal D/C 1:1 sitter; pt states she has no intention of harming herself pt states she wants help with her depression VSS JOCELINE RN Vitals Vitals Vital Signs Date Time Temp Pulse Resp B/P (MAP) Pulse Ox O2 Delivery O2 Flow Rate FiO2 11/09/17 10:55 65 116/73 (87) 96 Room Air 11/09/17 06:53 97.8 97.8 11/09/17 03:00 16 Physical Exam General: Alert, Oriented X3, Cooperative Heart: Regular rate, Normal S1 Lungs: Clear Abdomen: Normal bowel sounds, Soft Extremities: No clubbing, No cyanosis Skin: No rashes, No breakdown Review of Systems Review of Systems no sob increased alertness co anxiety Assessment and Plan Assessmemt and Plan Assessment: Xanax overdose Anxiety, Depression, Endometriosis ADHD, CHRONIC NECK PAIN Hysterectomy Plan: DC 1:1 observation start: Citalopram 40mg QD, Wellbutrin 75mg QD, Xanax 1mg TID recommend inpatient psych probable DC today to [facility] Comment Review of Relevant I have reviewed the following items melisa (where applicable) has been applied. Labs Laboratory Tests Test 11/07/17 13:30 11/07/17 20:15 White Blood Count 8.2 x10^3/uL (4.0-11.0) Red Blood Count 4.38 x10^6/uL (3.50-5.40) Hemoglobin 13.7 g/dL (12.0-15.5) Hematocrit 39.9 % (36.0-47.0) Mean Corpuscular Volume 91 fL (79-100) Mean Corpuscular Hemoglobin 31 pg (25-35) Mean Corpuscular Hemoglobin Concent 34 g/dL (31-37) Red Cell Distribution Width 13.6 % (11.5-14.5) Platelet Count 225 x10^3/uL (140-400) Sodium Level 141 mmol/L (136-145) Potassium Level 4.1 mmol/L (3.5-5.1) Chloride Level 107 mmol/L (98-107) Carbon Dioxide Level 29 mmol/L (21-32) Anion Gap 5 (6-14) Blood Urea Nitrogen 10 mg/dL (7-20) Creatinine 0.7 mg/dL (0.6-1.0) Estimated GFR (Cockcroft-Gault) 91.8 Glucose Level 89 mg/dL (70-99) Calcium Level 8.1 mg/dL (8.5-10.1) Magnesium Level 1.7 mg/dL (1.8-2.4) Urine Opiates Screen Neg (NEG) Urine Methadone Screen Neg (NEG) Urine Barbiturates Neg (NEG) Urine Phencyclidine Screen Neg (NEG) Urine Amphetamine/Methamphetamine Neg (NEG) Urine Benzodiazepines Screen Pos (NEG) Urine Cocaine Screen Neg (NEG) Urine Cannabinoids Screen Neg (NEG) Urine Ethyl Alcohol Neg (NEG) Medications Current Medications Diphtheria/ Tetanus/Acell Pertussis (Boostrix) 0.5 ml ONCE ONCE VAX IM Last administered on 11/06/17at 22:59; Start 11/06/17 at 22:30; Stop 11/06/17 at 22:31 ; Status DC Ondansetron HCl (Zofran) 4 mg PRN Q8HRS PRN IV NAUSEA/VOMITING; Start 11/06/17 at 22:30; Stop 11/07/17 at 22:29; Status DC Sodium Chloride 1,000 ml @ 100 mls/hr Q10H IV Last administered on 11/07/17at 19:47; Start 11/06/17 at 22:30; Stop 11/07/17 at 22:29; Status DC Sodium Chloride 1,000 ml @ 1,000 mls/hr 1X ONCE IV Last administered on at 22:51; Start 11/06/17 at 22:45; Stop 11/06/17 at 23:44; Status DC Ketorolac Tromethamine (Toradol 30mg Vial) 30 mg 1X ONCE IV Last administered on 11/07/17at 00:23; Start 11/06/17 at 23:55; Stop 11/06/17 at 23:56; Status DC Nicotine (Nicoderm Cq 14mg) 1 patch PRN DAILY PRN TD SMOKING CESSATION Last administered on 11/08/17at 10:14; Start 11/07/17 at 15:45 Acetaminophen (Tylenol) 500 mg PRN Q6HRS PRN PO MILD PAIN / TEMP Last administered on 11/09/17at 10:49; Start 11/08/17 at 09:00 Ondansetron HCl (Zofran Odt) 4 mg PRN Q6HRS PRN PO NAUSEA/VOMITING; Start 11/08 at 09:00 Magnesium Chloride (Mag Delay) 64 mg DAILY PO Last administered on 11/09/17at 09 :03; Start 11/08/17 at 09:00 Ibuprofen (Motrin) 600 mg PRN Q6HRS PRN PO INFLAMMATION; Start 11/08/17 at 09: 00 Magnesium Hydroxide (Milk Of Magnesia) 2,400 mg 1X ONCE PO Last administered on 11/08/17at 10:14; Start 11/08/17 at 09:45; Stop 11/08/17 at 09:46; Status DC Polyethylene Glycol (miraLAX PACKET) 17 gm 1X ONCE PO Last administered on at 10:14; Start 11/08/17 at 09:45; Stop 11/08/17 at 09:46; Status DC Docusate Sodium (Colace) 100 mg DAILY PO Last administered on 11/08/17at 10:14; Start 11/08/17 at 10:00 Polyethylene Glycol (miraLAX PACKET) 17 gm DAILY PO ; Start 11/09/17 at 09:00 Magnesium Hydroxide (Milk Of Magnesia) 2,400 mg PRN DAILY PRN PO CONSTIPATION; Start 11/08/17 at 09:45 Magnesium Sulfate/ Dextrose 100 ml @ 100 mls/hr 1X ONCE IV Last administered on 11/08/17at 12:07; Start 11/08/17 at 11:15; Stop 11/08/17 at 12:14; Status DC Citalopram Hydrobromide (CeleXA) 40 mg DAILY PO Last administered on 11/08/17at 18:44; Start 11/08/17 at 18:00 Venlafaxine HCl (Effexor Xr) 75 mg DAILY PO ; Start 11/09/17 at 09:00 Alprazolam (Xanax) 1 mg TID PO ; Start 11/09/17 at 14:00 Bupropion HCl (Wellbutrin) 75 mg PRN Q24HRS PO ; Start 11/09/17 at 11:45; Status UNV Citalopram Hydrobromide (CeleXA) 40 mg DAILY PO ; Start 11/09/17 at 12:00; Status UNV Active Scripts Active Cyclobenzaprine Hcl 10 Mg Tablet 1 Tab PO TID PRN Naproxen 250 Mg Tablet 250 Mg PO BID PRN Cyclobenzaprine Hcl 10 Mg Tablet 10 Mg PO TID PRN Sm Migraine Relief Caplet (Aspirin/Acetaminophen/Caffeine) 1 Each Tablet 1 Tab PO PRN Q6HRS PRN Hydrocodone-Apap 5-325 (Hydrocodone Bit/Acetaminophen) 1 Each Tablet 1 Tab PO PRN Q4HRS PRN Reported Escitalopram Oxalate 20 Mg Tablet 1 Tab PO DAILY Premarin (Estrogens, Conjugated) 0.625 Mg Tablet 1 Tab PO DAILY Ambien (Zolpidem Tartrate) 10 Mg Tablet 1 Tab PO QHS Adderall Xr 30 Mg Capsule (Dextroamphetamine/Amphetamine) 30 Mg Cap.er.24h 1 Cap PO PRN DAILY PRN Xanax (Alprazolam) 1 Mg Tablet 1 Tab PO PRN Q6-8HRS PRN Effexor Xr (Venlafaxine Hcl) 75 Mg Cap.er.24h 1 Cap PO DAILY Vitals/I & O Vital Sign - Last 24 Hours 11/08/17 11/08/17 11/08/17 11/08/17 15:00 19:00 19:35 23:00 Temp 98.0 97.9 97.7 98.0 97.9 97.7 Pulse 73 68 64 Resp 18 16 16 B/P (MAP) 113/67 (82) 121/78 (92) 111/70 (84) Pulse Ox 98 96 96 O2 Delivery Room Air Room Air Room Air Room Air 11/09/17 11/09/17 11/09/17 11/09/17 03:00 06:53 08:10 10:55 Temp 98.4 97.8 98.4 97.8 Pulse 64 71 65 Resp 16 B/P (MAP) 105/65 (78) 105/67 (80) 116/73 (87) Pulse Ox 94 95 96 O2 Delivery Room Air Room Air Room Air Room Air Intake and Output 11/08/17 11/08/17 11/09/17 15:00 23:00 07:00 Intake Total 600 ml Output Total 550 ml Balance 50 ml AMBER DE LA O III DO Nov 09, 2017 11:56
[2017-11-09] MEDS ORDERED: CITALOPRAM 20 MG TABLET. PO SCH (12:00)
[2017-11-09] MEDS ORDERED: buPROPion 75 MG TABLET. PO SCH (13:00)
[2017-11-09] MEDS ORDERED: ALPRAZolam 1 MG TABLET PO SCH (14:00)
[2017-11-09 14:56] VITALS: BP 120/75
--- NOTE | 2017-11-13 11:22 | DS ---
DATE OF DISCHARGE: 11/09/2017 ADMISSION DIAGNOSES: Xanax overdose. DISCHARGE DIAGNOSIS: Resolving Xanax overdose. 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 She presented with Xanax overdose, 90 tablets 1 mg each. She was admitted. We observed her for a couple of days until the medications were out of her blood stream. She was doing better. We discharged to inpatient psych. DISPOSITION: Inpatient psych. ACTIVITY: As tolerated. DIET: Low sodium. MEDICATIONS: Please see MRAD. TOTAL TIME: 33 minutes. NIAL Mandy DE LA O DO DR: PRESLEY/griselda JOB#: [id number] / [id number]
== END 2017-11-09 17:20 | disposition home or self-care (01) | DRG 918 ==
LOC: ER 21:33 → ED HOLD 22:15 → 1 WEST ICU 11-07 01:32 → 4 NORTH 11-07 19:25
PROVIDERS: ADMIT Family Medicine; ATTEND Family Medicine
DX: T42.4X2A Poisoning by benzodiazepines, intentional self-harm, initial encounter (principal); F32.9 Major depressive disorder, single episode, unspecified; F41.9 Anxiety disorder, unspecified; F90.9 Attention-deficit hyperactivity disorder, unspecified type; G89.29 Other chronic pain; M54.2 Cervicalgia; N80.9 Endometriosis, unspecified; Z82.49 Family history of ischemic heart disease and other diseases of the circulatory system; Z90.710 Acquired absence of both cervix and uterus; Y92.89 Other specified places as the place of occurrence of the external cause; Z88.8 Allergy status to other drugs, medicaments and biological substances
CPT/HCPCS: 36415; 80048; 80053; 80076; 80307; 80329; 81001; 83735; 84443; 85025; 85027; 87641; 90471; 90715; 93005; 96361; 96374; G6039; J1885; J3475; J7030; 99285-25; G0479

== ENCOUNTER 2019-03-12 17:28 | Emergency (ER) | payer BC ==
[~2019-03-12] VITALS: Ht 172.7 cm; Wt 72.6 kg
[~2019-03-12 17:28] MED LIST changes: +ESCITALOPRAM OX20 MG PO; -HYDR-2758 PO; +HYDR-2761 PO
[2019-03-12] MEDS ORDERED: KETOROLAC 15 MG/ML VIAL. IV STA (17:51)
[2019-03-12] MEDS ORDERED: MORPHINE SULFATE 10 MG/ML VIAL. IV STA (17:51)
--- NOTE | 2019-03-12 17:56 | PHYS DOC ---
Past Medical History Past Medical History: Anxiety, Depression, Endometriosis Additional Past Medical Histor: ADHD, CHRONIC NECK PAIN Past Surgical History: Hysterectomy Additional Past Surgical Histo: Pt. has had blood transfusion 2008 Alcohol Use: Occasionally Drug Use: Benzodiazepine Adult General Chief Complaint Chief Complaint: FLANK PAIN HPI HPI Patient is a 44 year old female who presents with left flank pain has been ongoing since Sunday morning. The patient also associated symptoms of nausea. Denies any burning or frequency on. Urination. The patient has a history kidney stones. She reports her pain as 10 out of 10 in severity and sharp. Review of Systems Review of Systems Constitutional: Denies fever or chills [] Eyes: Denies change in visual acuity, redness, or eye pain [] HENT: Denies nasal congestion or sore throat [] Respiratory: Reports cough. Cardiovascular: No additional information not addressed in HPI [] GI: Reports L flank pain, nausea, Denies vomiting, bloody stools or diarrhea [] : Denies dysuria or hematuria [] Musculoskeletal: Denies back pain or joint pain [] Integument: Denies rash or skin lesions [] Neurologic: Denies headache, focal weakness or sensory changes [] Endocrine: Denies polyuria or polydipsia [] Complete systems were reviewed and found to be within normal limits, except as documented in this note. Current Medications Current Medications Current Medications Medications (Trade) Dose Ordered Sig/Robi Start Time Stop Time Status Last Admin Dose Admin Ketorolac Tromethamine (Toradol 15mg Vial) 10 mg 1X STAT 03/12/19 17:51 03/12/19 17:53 DC 03/12/19 18:11 10 MG Morphine Sulfate (Morphine Sulfate) 5 mg 1X STAT 03/12/19 17:51 03/12/19 17:53 DC 03/12/19 18:12 5 MG Sodium Chloride 1,000 ml @ 1,000 mls/hr 1X ONCE 03/12/19 18:00 03/12/19 18:59 DC 03/12/19 18:09 1,000 MLS/HR Allergies Allergies Allergies Coded Allergies Type Severity Reaction Last Updated Verified metronidazole Allergy Intermediate Nausea 11/07/17 Yes I S O L A T I O N *CONTACT* Allergy Unknown 11/08/17 Yes Physical Exam Physical Exam Constitutional: Well developed, well nourished, no acute distress, non-toxic appearance. [] HENT: Normocephalic, atraumatic, bilateral external ears normal, oropharynx moist, no oral exudates, nose normal. [] Eyes: PERRLA, EOMI, conjunctiva normal, no discharge. [] Neck: Normal range of motion, no tenderness, supple, no stridor. [] Cardiovascular:Heart rate regular rhythm, no murmur [] Lungs & Thorax: Bilateral breath sounds clear to auscultation [] Abdomen: Bowel sounds normal, soft, L flank tenderness., no masses, no pulsatile masses. [] Skin: Warm, dry, no erythema, no rash. [] Back: L CVA tenderness. [] Neurologic: Alert and oriented X 3, normal motor function, normal sensory function, no focal deficits noted. [] Psychologic: Affect normal, judgement normal, mood normal. [] Current Patient Data Lab Values Laboratory Tests Test 03/12/19 17:35 03/12/19 17:37 03/12/19 17:45 Urine Collection Type Unknown Urine Color Yellow Urine Clarity Clear Urine pH 7.5 Urine Specific [place] 1.025 Urine Protein Negative mg/dL (NEG-TRACE) Urine Glucose (UA) Negative mg/dL (NEG) Urine Ketones (Stick) Negative mg/dL (NEG) Urine Blood Negative (NEG) Urine Nitrite Negative (NEG) Urine Bilirubin Negative (NEG) Urine Urobilinogen Dipstick 1.0 mg/dL (0.2 mg/dL) Urine Leukocyte Esterase Negative (NEG) Urine RBC Occ /HPF (0-2) Urine WBC Occ /HPF (0-4) Urine Squamous Epithelial Cells Few /LPF Urine Bacteria 0 /HPF (0-FEW) Urine Mucus Marked /LPF POC Urine HCG, Qualitative Hcg negative (Negative) White Blood Count 10.6 x10^3/uL (4.0-11.0) Red Blood Count 4.66 x10^6/uL (3.50-5.40) Hemoglobin 14.2 g/dL (12.0-15.5) Hematocrit 41.6 % (36.0-47.0) Mean Corpuscular Volume 89 fL (79-100) Mean Corpuscular Hemoglobin 31 pg (25-35) Mean Corpuscular Hemoglobin Concent 34 g/dL (31-37) Red Cell Distribution Width 13.7 % (11.5-14.5) Platelet Count 224 x10^3/uL (140-400) Neutrophils (%) (Auto) 55 % (31-73) Lymphocytes (%) (Auto) 34 % (24-48) Monocytes (%) (Auto) 7 % (0-9) Eosinophils (%) (Auto) 3 % (0-3) Basophils (%) (Auto) 1 % (0-3) Neutrophils # (Auto) 5.8 x10^3/uL (1.8-7.7) Lymphocytes # (Auto) 3.6 x10^3/uL (1.0-4.8) Monocytes # (Auto) 0.8 x10^3/uL (0.0-1.1) Eosinophils # (Auto) 0.3 x10^3/uL (0.0-0.7) Basophils # (Auto) 0.1 x10^3/uL (0.0-0.2) Sodium Level 139 mmol/L (136-145) Potassium Level 4.0 mmol/L (3.5-5.1) Chloride Level 101 mmol/L (98-107) Carbon Dioxide Level 30 mmol/L (21-32) Anion Gap 8 (6-14) Blood Urea Nitrogen 12 mg/dL (7-20) Creatinine 0.7 mg/dL (0.6-1.0) Estimated GFR (Cockcroft-Gault) 90.9 BUN/Creatinine Ratio 17 (6-20) Glucose Level 100 mg/dL (70-99) H Calcium Level 8.7 mg/dL (8.5-10.1) Total Bilirubin 0.2 mg/dL (0.2-1.0) Aspartate Amino Transferase (AST) 18 U/L (15-37) Alanine Aminotransferase (ALT) 22 U/L (14-59) Alkaline Phosphatase 77 U/L (46-116) Total Protein 7.4 g/dL (6.4-8.2) Albumin 3.7 g/dL (3.4-5.0) Albumin/Globulin Ratio 1.0 (1.0-1.7) Laboratory Tests 03/12/19 17:45 Laboratory Tests 03/12/19 17:45 EKG EKG [] Radiology/Procedures Radiology/Procedures [][facility] [address] [place] [address] IMAGING REPORT Signed PATIENT: BILLY GAMBOA ACCOUNT: [id number] : 1975 LOCATION: ER AGE: 44 SEX: F EXAM STATUS: REG ER ORD. PHYSICIAN: BECK SMITH APRN REASON: L flank pain PROCEDURE: CT ABDOMEN PELVIS WO CONTRAST Exam: CT abdomen and pelvis without contrast INDICATION: Left flank pain TECHNIQUE: Sequential axial images through the abdomen and pelvis obtained without IV contrast. Sagittal and coronal reformatted images were reconstructed from the axial data and reviewed. Comparisons: 07/24/2016 FINDINGS: Heart size is normal. No pericardial effusion. Visualized lung bases are clear. No pleural effusion. Evaluation of the solid organs is limited secondary to noncontrast technique. Liver, spleen, pancreas, gallbladder and adrenals are unremarkable. Several 2 to 3 mm nonobstructing right renal calculi are noted. No ureteral calculi. Kidneys demonstrate symmetric enhancement. No perinephric inflammation or hydronephrosis. Bladder is decompressed not well evaluated. Uterus is absent. No abnormal adnexal mass. Large and small bowel are unremarkable. Appendix is normal. No free intra-abdominal air or fluid. No obstruction. Abdominal aorta has a normal course and caliber. No enlarged intra-abdominal lymph nodes are identified. No suspicious osseous lesions or acute fracture. IMPRESSION: Nonobstructing right renal calculi. No ureteral calculi or evidence for obstructive uropathy. Exposure: One or more of the following in the visualized dose reduction techniques were utilized for this examination: 1. Automated exposure control 2. Adjustment of the MA and/or KV according to patient size 3. Use of iterative of reconstructive technique Electronically signed by: Dalton Weiss MD (03/12/2019 6:46 PM) [facility] DICTATED and SIGNED BY: DALTON WEISS MD DATE: 03/12/191845 Course & Med Decision Making Course & Med Decision Making Pertinent Labs and Imaging studies reviewed. (See chart for details) Will get CT wo contrast of abdomen/pelvis. Will also get labs, and give supportive care. Labs, urine, and CT are unremarkable. Dragon Disclaimer Dragon Disclaimer This electronic medical record was generated, in whole or in part, using a voice recognition dictation system. Departure Departure Impression: Primary Impression: Flank pain Disposition: 01 HOME, SELF-CARE Condition: STABLE Referrals: WILMER JENKINS MD (PCP) Patient Instructions: Flank Pain Additional Instructions: Thank you for visiting [facility]. We appreciate you trusting us with your care. If any additional problems come up don't hesitate to return to visit us. Please follow up with your primary care provider so they can plan additional care if needed and know about the problem that you had. If symptoms worsen come back to the Emergency Department. Any concerning symptoms that start such as chest pain, shortness of air, weakness or numbness on one side of the body, running high fevers or any other concerning symptoms return to the ER. BECK SMITH APRN Mar 12, 2019 17:56
[2019-03-12 17:59] LABS: BASO # 0.1 x10^3/uL (0.0-0.2); BASO % 1 % (0-3); EOS # 0.3 x10^3/uL (0.0-0.7); EOS % 3 % (0-3); HEMATOCRIT 41.6 % (36.0-47.0); HEMOGLOBIN 14.2 g/dL (12.0-15.5); LYMPH # 3.6 x10^3/uL (1.0-4.8); LYMPH % 34 % (24-48); MEAN CORPUSCULAR HEMOGLOBIN 31 pg (25-35); MEAN CORPUSCULAR HGB CONC 34 g/dL (31-37); MEAN CORPUSCULAR VOLUME 89 fL (79-100); MONO # 0.8 x10^3/uL (0.0-1.1); MONO % 7 % (0-9); NEUT # 5.8 x10^3/uL (1.8-7.7); NEUT % 55 % (31-73); PLATELET COUNT 224 x10^3/uL (140-400); RED BLOOD COUNT 4.66 x10^6/uL (3.50-5.40); RED CELL DISTRIBUTION WIDTH 13.7 % (11.5-14.5); WHITE BLOOD COUNT 10.6 x10^3/uL (4.0-11.0)
[2019-03-12] MEDS ORDERED: IV NORMAL SALINE 1000ML BAG 1,000 ML IV ONE (18:00)
[2019-03-12 18:01] LABS: BILIRUBIN,URINE NEGATIVE (NEG); CLARITY,URINE CLEAR; COLOR,URINE YELLOW; NITRITE,URINE NEGATIVE (NEG); PH,URINE 7.5; PROTEIN,URINE NEGATIVE (NEG-TRACE)
[2019-03-12 18:06] LABS: CALCIUM 8.7 mg/dL (8.5-10.1); CREATININE 0.7 mg/dL (0.6-1.0); GFR 90.9
[2019-03-12 18:09] LABS: SQUAMOUS EPITHELIAL CELL,UR FEW /LPF
[2019-03-12 18:10] LABS: BACTERIA,URINE 0 /HPF (0-FEW); RBC,URINE OCC /HPF (0-2); WBC,URINE OCC /HPF (0-4)
[2019-03-12 18:12] LABS: ALBUMIN 3.7 g/dL (3.4-5.0); TOTAL BILIRUBIN 0.2 mg/dL (0.2-1.0); TOTAL PROTEIN 7.4 g/dL (6.4-8.2)
--- NOTE | 2019-03-12 18:49 | RAD ---
Exam: CT abdomen and pelvis without contrast INDICATION: Left flank pain TECHNIQUE: Sequential axial images through the abdomen and pelvis obtained without IV contrast. Sagittal and coronal reformatted images were reconstructed from the axial data and reviewed. Comparisons: 07/24/2016 FINDINGS: Heart size is normal. No pericardial effusion. Visualized lung bases are clear. No pleural effusion. Evaluation of the solid organs is limited secondary to noncontrast technique. Liver, spleen, pancreas, gallbladder and adrenals are unremarkable. Several 2 to 3 mm nonobstructing right renal calculi are noted. No ureteral calculi. Kidneys demonstrate symmetric enhancement. No perinephric inflammation or hydronephrosis. Bladder is decompressed not well evaluated. Uterus is absent. No abnormal adnexal mass. Large and small bowel are unremarkable. Appendix is normal. No free intra-abdominal air or fluid. No obstruction. Abdominal aorta has a normal course and caliber. No enlarged intra-abdominal lymph nodes are identified. No suspicious osseous lesions or acute fracture. IMPRESSION: Nonobstructing right renal calculi. No ureteral calculi or evidence for obstructive uropathy. Exposure: One or more of the following in the visualized dose reduction techniques were utilized for this examination: 1. Automated exposure control 2. Adjustment of the MA and/or KV according to patient size 3. Use of iterative of reconstructive technique Electronically signed by: Dalton Cid MD (03/12/2019 6:46 PM) [id number]
[2019-03-12 19:00] VITALS: BP 129/75
== END 2019-03-12 19:25 | disposition home or self-care (01) ==
LOC: ER 17:28
DX: R10.9 Unspecified abdominal pain (principal); R11.0 Nausea; Z90.710 Acquired absence of both cervix and uterus; Z87.442 Personal history of urinary calculi; Z88.6 Allergy status to analgesic agent
CPT/HCPCS: 36415; 74176; 80053; 81001; 81025; 85025; 96374; 96375; 99285; J1885; J2270; J7030

== ENCOUNTER 2020-07-19 18:54 | Emergency (ER) | payer BC ==
[~2020-07-19 18:54] MED LIST changes: +NAPR-699 PO; -NAPR250T6 PO
== END 2020-07-19 19:18 | disposition left against medical advice (07) ==
LOC: ER 18:54
DX: R07.81 Pleurodynia (principal); Z53.21 Procedure and treatment not carried out due to patient leaving prior to being seen by health care provider